=== PATIENT | male | born 1975 | race Caucasian/White ===

== ENCOUNTER 2023-11-12 16:38 | Emergency (ER) | payer BC | END 2023-11-12 17:00 | disposition home or self-care (01) | LOC: CC.ED 16:38 | DX: S00.06XA Insect bite (nonvenomous) of scalp, initial encounter (principal); Z88.2 Allergy status to sulfonamides; Z79.899 Other long term (current) drug therapy; E78.00 Pure hypercholesterolemia, unspecified; W57.XXXA Bitten or stung by nonvenomous insect and other nonvenomous arthropods, initial encounter | CPT/HCPCS: 99281 ==